=== PATIENT | female | born 1985 | race Hispanic/Latino ===

== ENCOUNTER 2016-05-17 04:39 | Emergency (ER) | payer MEDICAID ==
[~2016-05-17] VITALS: Ht 154.9 cm; Wt 56.8 kg
[~2016-05-17 04:39] MED LIST: ASC500 PO; DSS100 PO; FES300 PO; MOT600 PO
[2016-05-17 04:42] VITALS: BP 102/80; PULSE 69; RESP 16; O2SAT 97
--- NOTE | 2016-05-17 05:11 | ED.REPORT ---
HPI-Abd Pain F Under 40 Date of Service May 17, 2016 ED Provider: Reji Hitchcock MD Ms. Armenta is a 31 y/o gravdia 2 para 1 woman who presents today for suprapubic abdominal pain for the past 2 days and was advised that if it got worse to come to the ED. It is a dull and constant. No exacerbating or relieving factors. She has vaginal bleeding for the past 2 days. Spotting. February 16, 2016 was last menstrual period. She had a positive test and has seen IMAGING ASSISTANT. Dr. Feliciano and saw her yesterday. No nausea, vomiting, diarrhea, constipation, dysuria, fever, or vaginal discharge. No history of STIs. She is 4-4.5 weeks and yesterday the ultrasound did not see a baby. She has not had an . 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 Nursing Notes Stated Complaint: 4 WKS ,PAIN,BLEEDING Chief Complaint: Female Abdominal Pain Nursing Notes Reviewed: Yes Allergies: Coded Allergies: No Known Allergies (Unverified Allergy, Unknown, 05/17/16) Scheduled Docusate Sod-Expunged Drug, Do Not Renew! (Docusate Sod-Expunged Drug, Do Not Renew!) 100 Mg Capsule 100 MG PO BID Ferrous Sulfate-Expunged Drug, Do Not Renew! (Feosol-Expunged Drug, Do Not Renew !) 325 Mg Tablet 1 TAB PO BID IBUPROFEN-Expunged Drug, Do Not Renew! (Motrin-Expunged Drug, Do Not Renew!) 600 Mg Tablet 600 MG PO Q6 Scheduled PRN Ascorbic Acid-Expunged Drug, Do Not Renew! (Vitamin C-Expunged Drug, Do Not Renew!) 500 Mg Tablet 500 MG PO BID PRN PRN with iron Hydrocodone-Acetaminophen 5-325 mg (Hydrocodone-Acetaminophen 5-325 mg) 1 Each Tablet 1 TABLET PO Q4H PRN PRN For Pain General Time Seen by MD: 05:00 Chief Complaint Abdominal pain Sudden in Onset?: No Onset Occurred: 3 days ago Severity: Current: Pain level 6 out of 10 Severity: Maximum: Pain level 6 out of 10 Associated with: Reports: Vaginal bleeding, Denies: Dysuria, Fever, Hematuria, Nausea, Urinary tract symptoms, Vomiting Status: Last NL menst cycle, Positive - home urine HCG Sexual History / Control: Denies History of STD, Denies Known exposure to STD : 1 Para: 1 Past Medical History Past Medical History denies Past Surgical History denies Smoking History Never Smoker Social History Alcohol Use: Denies alcohol use Drug Use: Denies drug use Review of Systems Constitutional: Denies: Chills, Fever Respiratory: Denies: Non-productive cough, Pleuritic pain, Shortness of breath Cardiovascular: Denies: Chest pain, Edema GI: Reports: Abdominal pain, Denies: Diarrhea, Nausea, Vomiting Female: Reports: Vaginal bleeding - abnl, Denies: Dysuria, Vaginal discharge Musculoskeletal: Denies: Back pain Physical Exam Initial Vital Signs Vital Signs (First) Date Time Temp Pulse Resp B/P Pulse Ox O2 Delivery O2 Flow Rate FiO2 05/17/16 04:42 36.4 69 16 102/80 97 Room Air Initial VS: Reviewed Head / Eyes: Atraumatic, Normocephalic, PERRL ENT: Mucous membranes moist, Conjunctiva normal, No scleral icterus Neck: Supple, Non-tender, Full range of motion Extremities: Vascular intact, Neuro intact, No swelling, No tenderness Skin: Warm, Dry, No cyanosis Neurologic: Alert, Oriented, Nonfocal Psychiatric: Mood/affect normal, Behavior normal, Normal thought content Respiratory / Chest: Breath sounds NL, Breath sounds = bilat, No respiratory distress, No rales, No rhonchi, No wheezing Cardiovascular: Heart rate NL, Regular rhythm, Heart sounds NL, No gallop, No murmurs, No rubs Abdomen: Soft, Non-tender, No guarding, No rebound, BS normoactive, No distention Lower Extremity / Pelvis / MS: No swelling, Non-tender Interpretation & Diagnostics Interpretation & Diagnostics: US- 6 weeks in the cervix no heart tones. Lab Results Interpretation Result Diagram: 05/17/16 0530 05/17/16 0530 Test 05/17/16 05:00 05/17/16 05:30 Urine Color Yellow (YELLOW) Urine Appearance Hazy (CLEAR,HAZY) Urine pH 6.0 (5.0-8.0) Urine Specific [place] 1.030 (1.003-1.035) Urine Protein Negativemg/dL (NEG,TRACE) Urine Glucose (UA) Negativemg/dL (NEGATIVE) Urine Ketones Negativemg/dL (NEGATIVE) Urine Occult Blood Large (NEGATIVE) Urine Nitrite Negative (NEGATIVE) Urine Bilirubin Negative (NEGATIVE) Urine Urobilinogen Normalmg/dL (NORMAL) Urine Leukocyte Esterase Negative (NEGATIVE) Urine RBC 3-10/hpf (0-2) Urine WBC 0-5/hpf (0-5) Urine Epithelial Cells Many/hpf (NONE-MOD) Urine Crystals None seen (NONE SEEN) Urine Bacteria None/hpf (NONE-FEW) Urine Hyaline Casts None/lpf (NONE) Urine Granular Casts None seen (NONE SEEN) Urine Waxy Casts None seen (NONE SEEN) Urine Red Blood Cell Casts None seen (NONE SEEN) Urine White Blood Cell Casts None seen (NONE SEEN) Urine Mucus Present (None Seen) Urine Trichomonas None seen (NONE SEEN) Urine Yeast None (NONE SEEN) Urine Culture Reflexed Not indicated White Blood Count 6.3th/mm3 (3.8-10.1) Red Blood Count 4.02mil/mm3 (3.90-5.20) Hemoglobin 12.6g/dL (12.0-15.6) Hematocrit 37.4% (35.0-46.0) Mean Corpuscular Volume 93.0fL (81-100) Mean Corpuscular Hemoglobin 31.3pg (27.0-35.0) Mean Corpuscular Hemoglobin Concent 33.7% (32.0-37.0) Red Cell Distribution Width 11.7% (12.3-15.4) Platelet Count 217bil/L (150-400) Sodium Level 137mEq/L (134-144) Potassium Level 3.6mEq/L (3.5-5.2) Chloride Level 100mEq/L (97-108) Carbon Dioxide Level 23mmol/L (18-29) Blood Urea Nitrogen 14mg/dL (6-20) Creatinine 0.40mg/dL (0.57-1.00) Estimat Glomerular Filtration Rate 267mL/min (>59) Glucose Level 101mg/dL (60-99) Calcium Level 8.4mg/dL (8.5-10.1) Total Bilirubin 0.4mg/dL (0.0-1.2) Aspartate Amino Transf (AST/SGOT) 36U/L (0-50) Alanine Aminotransferase (ALT/SGPT) 31U/L (0-32) Alkaline Phosphatase 70U/L (25-150) Total Protein 7.1g/dL (6.4-8.4) Albumin 4.0g/dL (3.4-5.0) HCG Beta Subunit 9660mIU/mL Hold Ortega Top Tube Received (Received) Re-Eval/Medical Decision Med Decision/Clinical Course Med Decision/Clinical Course: 1. vaginal bleeding -Pt reports that she is 4-6 weeks and ultrasound done by IMAGING ASSISTANT yesterday did not show a fetus -No pelvic exam performed -UA is not concerning for UTI -Quantitative betaHCG Rh factor pending and based on the results, if the betaHCG is <1,000 no further ultrasound imaging but if betaHCG is >1,000 then consider further ultrasound imaging. Based on Rh factor results, then consider Rhogram for the pt. 0600: I (Reji Hitchcock MD) assumed care of this patient from Dr. Mueller and resident Dr. Pack. In summary, patient is a early , unknown dates presenting with lower abdominal cramping and scant bleeding. Recent ultrasound did not demonstrate IUP presumably due to early gestational age. Quantitative hCG is pending. Patient is stable and pelvic exam/ultrasound been deferred at this time. Labs reviewed as below CBC unremarkable CMP unremarkable Beta HCG 9660 US- 6 weeks in the cervix no heart tones. I performed a pelvic examination which revealed products of conception at the cervix which was dilated and open. There was bright red blood in the vaginal introitus. There is extensive clotted material in the vagina. At this time presentation consistent with inevitable . Patient will follow-up with her IMAGING ASSISTANT doctor at [facility] next week. Follow-up and return precautions were provided and her pain was treated with oral hydrocodone. Patient was discharged in stable condition. Re-Evaluation/Progress #1: Time of Eval: 05:23 Patient Status: Condition improved Re-Evaluation/Progress Note: Patient is rechecked. Further history is obtained. All of the patient's questions are addressed and she is informed of the current treatment plan. Re-Evaluation/Progress #2: Time of Eval: 07:27 Re-Evaluation/Progress Note: Pt pain at 6/10. US currently in progress. Pt still with mild bleeding. Re-Evaluation/Progress #3: Time of Eval: 08:00 Re-Evaluation/Progress Note: Pelvic exam: External vaginal exam normal. Bright red blood in vaginal vault. Cervix open with products of conception and clotted blood visible at cervix. Updated pt of diagnosis and plan for f/u. All questions addressed. DDx includes but not limited to: Miscarriage, threatened , ectopic , normal vaginal bleeding of , PID Counseled Regarding: Diagnosis, Lab results, Need for follow-up, When/why to return to ED Discharge & Departure Primary Impression: Inevitable Additional Impressions: Vaginal bleeding Abdominal cramping Disposition: Home Discharge Condition All VS Reviewed: Yes Condition: Improved Patient Instructions: Spontaneous Miscarriage (ED) Unfortunately, it appears that you are having a miscarriage. You will experience a lot of bleeding and clots in the next few days. Follow up with your OB doctor on Thursday. Return tot the ER for severe bleeding, dizziness, lightheadedness or feeling faint. Referrals: Desean Fleiciano MD (PCP) Care Transferred to: Dr. Reji Hitchcock Care Transferred at: 06:00 EDSupervising Provider for APC: Reji Hitchcock MD Attestation Portions of this note were transcribed by Frank Rosales. I, Dr. Mueller personally performed the history, physical exam and medical decision-making; I reviewed and confirmed the accuracy of the information in the transcribed note. Signed by: Chelsey Phan, 05/17/16 0600. Attending Statment As attending of record for this patient, I conducted an independent history and physical examination, and concur with the resident documentation as detailed above, and as amended. copies to: Desean Feliciano MD, Marissa L DO May 17, 2016 05:11 FRANK ROSALES May 17, 2016 05:25 Reji Hitchcock MD May 17, 2016 06:13 Shay Mueller MD May 17, 2016 06:25 Mary Jo Sharp May 17, 2016 08:34
[2016-05-17 06:00] LABS: Mean Corpuscular Hemoglobin 31.3 pg (27.0-35.0)
[2016-05-17 06:00] LABS: APPEARANCE,URINE HAZY (CLEAR,HAZY); COLOR,URINE YELLOW (YELLOW); OCCULT BLOOD,URINE LARGE (NEGATIVE); UROBILINOGEN,URINE NORMAL (NORMAL)
[2016-05-17] MEDS ORDERED: HYDROcodone-APAP 5-325 mg Tablet PO ONE (08:30)
[2016-05-17] MEDS ORDERED: HYDR-4003 PO (08:31)
[2016-05-17 08:49] VITALS: BP 104/66; PULSE 74; RESP 10; O2SAT 98
--- NOTE | 2016-05-17 09:17 | DRSVH ---
PROCEDURE: US OB<14 WKS+OB TRANSVAG INDICATIONS: vag bleed/preg OUTSIDE/PRIOR DATING DATA: Last menstrual period (LMP): 02/16/2016. LMP-based estimated date of delivery (MARGARETH): 11/22/2016. First dating scan (date and location): 05/17/2016 at [facility]. Estimated date of delivery (MARGARETH) from first dating scan: 01/09/2017. TECHNIQUE: Real-time scanning was performed of the fetus and maternal pelvic organs, with image documentation. Endovaginal scanning was also performed to better visualize the fetus and maternal ovaries. COMPARISON: None. FINDINGS: There is an intrauterine vascular sac in the lower uterine segment/endocervical canal. Amn ion appears detached. [place]-rump length appears abnormal in morphology. No cardiac activity is visualized. Embryo: OB-CLAIM REP Ultrasound Procedure Report Early Gestation [employer] Mean Gestational Sac Diameter: - Gestational Age (MGSD): - [place] Rump Length: 4 mm Gestational Age (CRL): 6 weeks 1 day Summary Fetus Summary Heart Rate: Not visualized Comments: A normal yolk sac is noted. Measurement variability in dating: +/- 4 weeks by LMP, +/- 7 days by mean sac diameter (use before 6 weeks gestation if crown-rump length not able to be measured), +/- 5 days by crown-rump length (6-12 weeks gestation). Maternal organs: Ovaries are not visualized. No pathological pelvic fluid. IMPRESSION: 1. A single intrauterine gestational sac with a pole. The gestational sac is in the lower uteri ne segment/endocervical canal. Amnion appears detached. The estimated gestational age is 6 weeks 1 da y. No cardiac activity is present. The ultrasound findings are concerning for first trimester f etal demise. Recommend thecal correlation. 2. No pathological pelvic fluid. Dictated by: Annabella Aburto M.D. on 05/17/2016 at 9:09 Approved by: Annabella Aburto M.D. on 05/17/2016 at 9:16
[2016-05-23] MEDS ORDERED: PREN1.4T2 PO (14:54)
[2016-05-23] MEDS ORDERED: MISO200T4 VAGINAL (14:55)
== END 2016-05-17 08:54 | disposition home or self-care (01) ==
LOC: SED 04:39
DX: O03.9 Complete or unspecified spontaneous abortion without complication (principal); Z3A.01 Less than 8 weeks gestation of pregnancy

== ENCOUNTER 2016-05-26 08:22 | Day surgery (SDC) | payer MEDICAID ==
[~2016-05-26] VITALS: Ht 154.9 cm; Wt 65.1 kg
[2016-05-26] VITALS (8 sets, daily range): BP systolic 106–124; BP diastolic 59–68; PULSE 75–91; RESP 16–24; O2SAT 97–99
[~2016-05-26 08:22] MED LIST changes: -DSS100 PO; +HYDR-4003 PO; +Lactated Ringer's 1,000 ML IV ONE; +MISO200T4 VAGINAL; -MOT600 PO; +PREN1.4T2 PO
[2016-05-26] MEDS ORDERED: Oxytocin 10 Unit/mL Inj ONE (08:23)
[2016-05-26] MEDS ORDERED: Propofol 10,000 mCg/mL 20 mL Inj ONE (08:23)
[2016-05-26] MEDS ORDERED: Ondansetron 2 mg/mL 2 mL Inj ONE ×2 (08:23→14:48)
[2016-05-26] MEDS ORDERED: EPHEDrine/NS 5 mg/mL 5 mL Syringe ONE (08:23)
[2016-05-26] MEDS ORDERED: Dexamethasone 4 mg/mL Inj ONE (08:23)
[2016-05-26] MEDS ORDERED: Lactated Ringer's 500 ML IV PRN (12:14)
[2016-05-26] MEDS ORDERED: Lactated Ringer's 1,000 ML IV SCH (12:14)
--- NOTE | 2016-05-26 12:14 | PCM.HPANE ---
Patient Data Date of Service: May 26, 2016 Surgeon Admitting Provider: Attending Provider:Desean Feliciano MD Primary Care Physician:Desean Feliciano MD Other Provider:Cosme Aaron Anesthesia Reason for Visit Spontaneous Ht/WT & BMI Height (Feet): 5 Height (Inches): 1 Weight (Kilograms): 65.1 Body Mass Index 27.00 Allergies Coded Allergies: No Known Allergies (Verified Allergy, Unknown, 05/23/16) Past Anesthesia History Anesthesia History: Denies:: Fam Anesthesia Reaction, Fam Malignant Hypertherm Diabetes History Hx Diabetes?: No MRSA MRSA: No Medications Home Meds Incl Beta Chapo: No Active Scripts Hydrocodone-Acetaminophen 5-325 mg 1 Each Tablet1 Tablet PO Q4H PRN For Pain # 20 TABLET Prov:Reji Hitchcock MD 05/17/16 Ascorbic Acid-Expunged Drug, Do Not Renew! (Vitamin C-Expunged Drug, Do Not Renew!)500 Mg [id number] Mg PO BID PRN with iron #60 Prov:Desean Feliciano MD 05/18/13 Ferrous Sulfate-Expunged Drug, Do Not Renew! (Feosol-Expunged Drug, Do Not Renew !)325 Mg Tablet1 Tab PO BID anemia #60 Prov:Desean Feliciano MD 05/18/13 Reported Medications Misoprostol 200 Mcg [id number] Mcg VAGINAL 0600 AM OF SURGERY 05/23/16 Comb No.42/Folic Acid (Prena1 Chew Tablet)1.4 Mg Tab.ch.bph1.4 Mg PO DAILY 05/23/16 Discontinued Scripts IBUPROFEN-Expunged Drug, Do Not Renew! (Motrin-Expunged Drug, Do Not Renew!)600 Mg [id number] Mg PO Q6 #40 Prov:Desean Feliciano MD 05/18/13 Docusate Sod-Expunged Drug, Do Not Renew! 100 Mg [id number] Mg PO BID #60 Prov:Desean Feliciano MD 05/18/13 History History of ENT Problems?: No Hx of Heart Problems?: No Cardiovascular History: Denies:: Congestive Heart Failure Heart Murmur Hypertension Hx of Respiratory Problem?: No Respiratory History: Denies:: Tuberculosis Use of C-PAP Machine Hx Neurologic Problems?: No Hx of GI Problems?: No Hx of Problems?: No Skin History: Denies:: History Skin Disorders? Pressure Ulcers Hx Musculoskeletal Problems?: No Hx of Psycho/Social Problems?: No Hx Surgeries?: No Hx Any Other Health Problems?: No Other History: Positive for:: Hospitalization (CHILDBIRTH) Denies:: Cancer Endocrine Disease Thyroid Disease History Blood Transfusions: Denies:: Blood Transfusions Hx Diabetes: No Hx Alcohol Use: NoHx Substance Use: No Smoking Status: Never Smoker Have You Smoked inLast 12 mo: No Stop/Bang S-Snoring: Do You Snore Loudly: No T-Tired: feel tired, fatigued: No O-Obsered: Observed not breath: No P-Blood Pressure: treated: No B- Body Mass Index > 35 kg/m2: No A- Age over 50: No N- Neck Large Circumference: No G- Gender Male: No ITZEL Total Score: 0 ITZEL Risk Assessment: Low Risk, <3 Yes Risk Assessment Category Category 1A: Patient has history of documented sleep apnea, and HAS NOT received any narcotic, sedative or anesthesia administration during this stay. Category 1B: Patient has history of documented sleep apnea, and HAS received any narcotic , sedative or anesthesia administration during this stay Category 2: Patient has SUSPECTED Obstructive Sleep Apnea, and HAS received any narcotic , sedative or anesthesia administration during this stay. Category 3: Patient has SUSPECTED Obstructive Sleep Apnea and HAS NOT received narcotic, sedative or anesthesia administration during this stay. Category 4: Outpatient in Procedural Areas with known sleep apnea or who screen positive for High Risk via the STOP/BANG questionnaire. Exam Exam Vital Signs Vital Signs Date Time Temp Pulse Resp B/P Pulse Ox O2 Delivery O2 Flow Rate FiO2 05/26/16 10:00 37 75 16 111/59 99 Room Air General Appearance: Oriented X3 HEENT/AIRWAY: MP 2 Lungs: Clear to Auscultation Heart: Exam Unremarkable Meds/Labs/Diagnostics Admission Meds downtrending HCG Current Medications Lactated Ringer's (Lr) 1,000 ml @ 120 mls/hr Q8H20M ONCE IV Last administered on 05/26/16 09:32; Start 05/26/16 at 05:00; Stop 05/26/16 at 13:19 Doxycycline Hyclate (VibraTabs) 100 mg STK-MED ONCE .ROUTE Last administered on 05/26/16 10:16; Start 2/6/17 at 10:12; Stop 05/26/16 at 10:14; Status DC Plan Impression Patient chart reviewed, patient interviewed and anesthestic plan with risks, benefits, and alternatives discussed, and informed consent obtained. NPO Status: 05/25/161999 ASA Physical Status: ASA1 Normal Healthy Anesthetic Plan: GA Bene/Risks/Altern/Consents: Yes HP Complete Prior to Induction: Yes Jose Santiago MD May 26, 2016 12:14
[2016-05-26] MEDS ORDERED: EPHEDrine Sulfate 50 mg/mL Inj IVPUSH PRN (12:15)
[2016-05-26] MEDS ORDERED: MetoCLOpramide 5 mg/mL 2 mL Inj IVPUSH PRN (12:15)
[2016-05-26] MEDS ORDERED: HYDROmorphone 1 mg/mL Inj IVPUSH PRN (12:15)
[2016-05-26] MEDS ORDERED: Dexamethasone 4 mg/mL Inj IVPUSH PRN (12:15)
[2016-05-26] MEDS ORDERED: Phenylephrine 10,000 mCg/mL Inj IVPUSH PRN (12:15)
[2016-05-26] MEDS ORDERED: Ondansetron 2 mg/mL 2 mL Inj IVPUSH PRN (12:15)
[2016-05-26] MEDS ORDERED: fentaNYL-PF 50 mCg/mL 2 mL Inj IVPUSH PRN (12:15)
--- NOTE | 2016-05-26 14:30 | PCM.ANEP1 ---
Post Anesthesia Phase 1 PACU Phase 1 Assessment Date of Service: May 26, 2016 Vital Signs Vital Signs Date Time Temp Pulse Resp B/P Pulse Ox O2 Delivery O2 Flow Rate FiO2 05/26/16 13:13 85 20 124/65 99 Room Air 05/26/16 13:05 36.8 86 24 122/65 99 Room Air 05/26/16 13:00 88 21 119/67 98 Room Air 05/26/16 12:50 86 23 119/68 98 Room Air 05/26/16 12:45 85 20 117/65 97 Room Air 05/26/16 12:40 36.4 90 20 121/63 97 Room Air 05/26/16 10:00 37 75 16 111/59 99 Room Air Anesthetic Administered: GA Level of Alertness: Sleepy, easy to arouse Nausea or Vomiting: No Oxygen Delivery: Room Air Lungs: Clear to Auscultation Jose Santiago MD May 26, 2016 14:30
--- NOTE | 2016-05-26 14:31 | PCM.ANEP2 ---
Post Anesthesia Evaluation ASA/CMS Post Anesthesia VS in Patient's Normal Range?: Yes Resp Stable; Airway Patent?: Yes CV Function & Hydration Stable: Yes Mental Status Recovered?: Yes Pain control Satisfactory?: Yes N/V Control Satisfactory?: Yes Jose Santiago MD May 26, 2016 14:31
--- NOTE | 2016-05-26 23:41 | OP ---
[address] [address] OPERATIVE REPORT PATIENT: NICOLE VERA : 1985 MR#: [id number] ADMIT: 05/26/2016 JOB ID: [id number] DATE OF SURGERY: 05/26/2016 PREOPERATIVE DIAGNOSIS(ES): A 31-year-old, 2, para 1-0-0-1, with incomplete , confirmed retained products of conception by ultrasound on May 21, 2016. Patient opted to proceed with suction dilatation and curettage. POSTOPERATIVE DIAGNOSIS(ES): A 31-year-old, 2, para 1-0-0-1, with incomplete , confirmed retained products of conception by ultrasound on May 21, 2016. Patient opted to proceed with suction dilatation and curettage. PROCEDURE: Suction D&C. SURGEON: Desean Feliciano MD. ANESTHESIA: General endotracheal. ESTIMATED BLOOD LOSS: 30 cc. IV FLUIDS: 800 cc of crystalloid. URINE OUTPUT: 200 cc of clear urine at the beginning of the procedure. COMPLICATIONS: None. SPECIMEN REMOVED: Products of conception sent to pathology FINDINGS: Examination under anesthesia revealed a midposition uterus, 10 weeks size. No adnexal masses appreciated bilaterally. Intraoperative findings: Uterus sounded to 9 cm. Retained products of conception retrieved by suction; suction curette #10 used. PROCEDURE IN DETAIL: Risks, benefits and alternatives of the procedure were discussed with the patient. Informed consent signed. Patient moved to the operating room with IV running. After general anesthesia was found to be adequate, the patient was placed in dorsal lithotomy position; prepped and draped in the normal sterile fashion. Examination under anesthesia revealed the above findings. A weighted speculum inserted into the patient's vagina. Anterior lip of the cervix grasped with a single-tooth tenaculum. Cervix dilated up to Hegar dilator #11 and this introduced a 10 mm curved suction curette easily into the uterus. Then suction curettage retrieved retained products of conception. The suction curette removed and then a sharp curette introduced for sharp curettage. This was followed by a 2nd introduction of the suction curette and no more blood or products of conception were retrieved. All instruments removed from the patient's vagina. The single-tooth tenaculum insertion site was bleeding, this was controlled with Monsel solution. Patient tolerated the procedure well. Sponge, lap, and instrument counts were correct x2. The patient was recovered in a stable condition. Dr. Feliciano was present and scrubbed for the entire procedure. PACO
--- NOTE | 2016-05-28 10:46 | PATH ---
SURGICAL PATHOLOGY Attending Physician:Desean Feliciano MD CASE STATUS: Signed Out PATIENT NAME: NICOLE VERA PID: [id number] : 1985 DATE COLLECTED:05/26/2016 00:00 SPECIMEN: Products of conception CLINICAL HISTORY: SPONTANEOUS 1). PRODUCTS OF CONCEPTION FINAL DIAGNOSIS: 1.PRODUCTS OF CONCEPTION: RARE FRAGMENT OF IMMATURE PLACENTAL TISSUE AND TROPHOBLAST WITH ASSOCIATED PARTIALLY NECROTIC DECIDUAL TISSUE AND GRAVID ENDOMETRIUM. ICD10 CODE O02.1 GROSS DESCRIPTION: The specimen is received in one formalin filled container labeled with the patient's name, sublabeled "products of conception" and consists of multiple portions of tissue which aggregate to 3.0 x 2.0 x 0.6 CM. No grossly recognizable parts are observed. The specimen is entirely submitted in 2 cassettes. 05/27/2016 [facility] MICRO DESCRIPTION: See diagnosis. ICD-9 CODES: CPT CODES: 1: 44502 Electronically Signed Out Fabricio Gupta MD [facility] [address], [place] [address] Technical component performed at [facility], [facility] [address], [place], [address]
== END 2016-05-26 23:59 | disposition home or self-care (01) ==
LOC: SAS 08:22
PROVIDERS: ATTEND Obstetrics & Gynecology
DX: O03.9 Complete or unspecified spontaneous abortion without complication (principal); Z79.899 Other long term (current) drug therapy
CPT/HCPCS: 59812; J2405; J7120

== ENCOUNTER 2016-06-27 09:58 | Day surgery (SDC) | payer MEDICAID ==
[2016-06-27] VITALS (8 sets, daily range): BP systolic 82–110; BP diastolic 60–69; PULSE 56–72; RESP 16; O2SAT 93–99
[~2016-06-27] VITALS: Ht 157.5 cm; Wt 66.0 kg
[~2016-06-27 09:58] MED LIST changes: +0.9% Sodium Chloride 1,000 ML IV SCH; -Lactated Ringer's 1,000 ML IV ONE; +Sodium Chloride LOK Flush 10 mL Syringe IV PRN; +fentaNYL-PF 50 mCg/mL 2 mL Inj IVPUSH PRN
--- NOTE | 2016-06-27 13:43 | ENDO ---
[address] [address] ENDOSCOPY PROCEDURE PATIENT: NICOLE VERA : 1985 MR#: [id number] ADMIT: 06/27/2016 JOB ID: [id number] PROCEDURE: Colonoscopy. INDICATION: Rectal bleeding. Patient's ASA classification is I. Mallampati score was I. MEDICATIONS: Versed 4 mg, fentanyl 100 mcg. INSTRUMENT USED: [id number]. PREPARATION QUALITY: Good. PROCEDURE DETAILS: After informed consent was obtained, the patient was brought to the GI suite, where she was placed on oxygen via nasal cannula and monitored with continuous pulse oximeter, telemetry, and blood pressure monitoring. A time-out was performed. Then, she was placed in a left lateral decubitus position. Medications were administered for sedation. Digital rectal exam was performed and was unremarkable. Colonoscope was then inserted into the rectum and advanced under direct visualization to the cecum, which was identified by the presence of the ileocecal valve and appendiceal orifice. Once cecum was reached colonoscope was withdrawn back into the rectum. Mucosa and lumen were examined. In the rectum, retroflexion was performed. Following retroflexion, remaining air in the rectum was suctioned, and procedure was completed. FINDINGS: Normal exam from rectum to cecum. IMPRESSION: Normal colonoscopy. Suspect rectal bleeding from benign anorectal disease. RECOMMENDATIONS: Fiber-rich diet and if rectal bleeding continues trial of Anusol HC suppositories. COMPLICATIONS: None. ESTIMATED BLOOD LOSS: Zero.
== END 2016-06-27 23:59 | disposition home or self-care (01) ==
LOC: END 09:58
PROVIDERS: ATTEND Internal Medicine Gastroenterology
DX: K92.1 Melena (principal)
CPT/HCPCS: 45378; G0500; J2250; J3010; J7030